=== PATIENT | female | born 1990 | race Caucasian/White ===

== ENCOUNTER 2016-05-13 09:58 | Emergency (ER) | payer BC ==
[2016-05-13 10:19] VITALS: BP 142/90; PULSE 78; RESP 18; TEMP 98.1; O2SAT 99
--- NOTE | 2016-05-13 10:44 | UCPHY ---
H & P Patient Type: New Chief Complaint Nursing Narrative: while skiing on sat. hit back of head. was wearing helmet. +loc,n/visual changes,brown,troble concentrating Time Seen by Provider: 05/13/16 10:23 HPI/ROS: CHIEF COMPLAINT: Headache HISTORY OF PRESENT ILLNESS: 25 year old otherwise healthy woman presents complaining of headache, neck pain and nausea and not feeling herself with difficulty concentrating since she sustained a head injury while skiing 4 days ago. Patient states she was skiing on Thursday when she is not sure what happened but she awoke on the ground. She thinks she hit a chunck of ice and went down. She was wearing a helmet. She thinks she was out for just a few seconds, but she could not remember what happened to her. She had a headache in her occiput where her helmet was against her head and felt nauseated. She was able to ski down but was feeling poorly and did not ski for the rest of the day. Since that time she has been having persistent headaches that she describes as occipital, radiating to the front associated with some mild photophobia and phonophobia, as well as difficulty concentrating and nausea. She has had no actual vomiting. She states that she does not feel as sharp as she usually does. For the 1st 2 days she has some vertigo but this is improved. She also has been getting intermittent tunnel vision. She denies any double vision, loss of vision, focal numbness or weakness. She does complain of pain in her neck and shoulders radiating to her arms. She has not taken anything for the headache. She does not smoke. 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 REVIEW OF SYSTEMS: As in HPI, all other systems are reviewed and are negative. - Personal History LMP (Females 10-55): 22-28 Days Ago Current Tetanus Diphtheria and Acellular Pertussis (TDAP): Yes - Medical/Surgical History Hx Asthma: No Hx Chronic Respiratory Disease: No Hx Diabetes: No Hx Cardiac Disease: No Hx Renal Disease: No Hx Cirrhosis: No Hx Alcoholism: No Hx HIV/AIDS: No Hx Splenectomy or Spleen Trauma: No Other PMH: ortho surgery - Family History Significant Family History: No pertinent family hx - Social History Smoking Status: Never smoked - Physical Exam Exam: General Appearance: Alert and no distress. Head: Normocephalic, atraumatic, no palpable hematomas Eyes: Pupils equal and round no injection. Extraocular movements intact bilaterally Neck: No bony tenderness, full range of motion, mild trapezius tenderness Respiratory: Chest is nontender, lungs are clear to auscultation. Cardiac: regular rate and rhythm. Gastrointestinal: Abdomen is soft and nontender, no masses, bowel sounds normal. Musculoskeletal: Neck is supple and nontender. Extremities have full range of motion and are nontender. Skin: No rashes or lesions. Neuro: Awake alert and oriented x3, speech fluent, cranial nerves 2-12 intact, no pronator drift, normal gait, DTRs 2+ equal bilaterally upper and lower extremities, [id number] intact Constitutional: Initial Vital Signs Temperature (C) 36.7 C 05/13/16 10:16 Heart Rate 78 05/13/16 10:16 Respiratory Rate 18 05/13/16 10:16 Blood Pressure 142/90 H 05/13/16 10:16 O2 Sat (%) 99 05/13/16 10:16 O2 Delivery Mode Room Air Allergies/Adverse Reactions: Penicillins Allergy (Verified 05/13/16 10:16) Home Medications: Medication Instructions Recorded NK [No Known Home Meds] 05/13/16 Medical Decision Making ED Course/Re-evaluation: Patient presents with headache, nausea and difficulty concentrating after head injury with loss of consciousness 4 days ago. Patient has a normal neurologic exam. Her presentation is consistent with ongoing concussive symptoms or postconcussive syndrome. There is no evidence of significant neurological impairment. We discussed home care with rest and progressive return to activities including work and exercise. Patient has been referred for primary care as well as neurologic follow-up. Departure - Departure Clinical Impression: Post concussion syndrome Condition: Fair Instructions: Post Concussion Syndrome (ED) Additional Instructions: You were seen by Dr. Li Britton today. It is okay to take Tylenol or ibuprofen for headache. It is OK to nap to rest your brain. Please return for any worsening or new concerns. Referrals: NONE *PRIMARY CARE P,. [Primary Care Provider] - As per Instructions - PQRS PQRS Measurement: NA
== END 2016-05-13 10:45 | disposition home or self-care (01) ==
LOC: CED 09:58
DX: F07.81 Postconcussional syndrome (principal); S06.9X1A Unspecified intracranial injury with loss of consciousness of 30 minutes or less, initial encounter; M54.2 Cervicalgia; V00.321A Fall from snow-skis, initial encounter; Y93.23 Activity, snow (alpine) (downhill) skiing, snowboarding, sledding, tobogganing and snow tubing
CPT/HCPCS: 99203-PO; G0463-PO

== ENCOUNTER 2017-04-11 10:06 | Inpatient (IN) | payer BC ==
--- NOTE | 2017-04-11 10:30 | CPEKG ---
Heart Rate: 69 RR Interval: 870 P-R Interval: 144 QRSD Interval: 88 QT Interval: 396 QTC Interval: 425 P [place]: 47 QRS [place]: 49 T Wave [place]: 7 EKG Severity - NORMAL ECG - EKG Impression: SINUS RHYTHM Electronically Signed By: Jaskaran Longo 11-Apr-2017 10:39:51
[2017-04-11 10:59] LABS: PLATELET COUNT 262 10^3/uL (150-400)
--- NOTE | 2017-04-11 11:01 | EDPHY ---
H & P Stated Complaint: CP - Personal History LMP (Females 10-55): IUD In Place Current Tetanus/Diphtheria Vaccine: Yes Current Tetanus Diphtheria and Acellular Pertussis (TDAP): Yes - Medical/Surgical History Hx Asthma: No Hx Chronic Respiratory Disease: No Hx Diabetes: No Hx Cardiac Disease: No Hx Renal Disease: No Hx Cirrhosis: No Hx Alcoholism: No Hx HIV/AIDS: No Hx Splenectomy or Spleen Trauma: No Other PMH: ortho surgery - Social History Smoking Status: Never smoked Time Seen by Provider: 04/11/17 10:38 HPI/ROS: CHIEF COMPLAINT: Chest pain HISTORY OF PRESENT ILLNESS: 26-year-old female generally healthy return from a trip to landing yesterday, landed at 2:30 p.m. Yesterday. 6 hr into the flight she developed midsternal chest pain with associated dyspnea. She was evaluated by paramedics at [facility], went home, notes that the midsternal chest pain continues. No nausea or vomiting. No radiation pain. No dyspnea currently. Chest pain is not reproducible with inspiration or movement. Not reproducible with palpation to the chest. While in [place] she developed an episode of gastroenteritis which subsided 3 days ago . She was symptomatic with vomiting and diarrhea when this episode occurred however she has now been asymptomatic for 3 days. REVIEW OF SYSTEMS: A ten point review of systems was performed and is negative with the exception of the items mentioned in the HPI PAST MEDICAL & SURGICAL HISTORY: No exogenous estrogen use. SOCIAL HISTORY:No cocaine use no cigarette use. No illicit drug use. FAMILY HISTORY: No coagulopathic disorder, no family history of premature coronary artery disease or sudden unexpected PHYSICAL EXAM (Prior to examination, patient consented to physical exam, hands were washed and my usual and customary physical exam procedures followed) 1) GENERAL: Well-developed, well-nourished, alert and oriented. Appears to be in no acute distress. 2) HEAD: Normocephalic, atraumatic 3) HEENT: Pupils equal, round, reactive to light bilaterally. Sclera anicteric. 4) NECK: Full range of motion, no meningeal signs. No bruit 5) LUNGS: Clear auscultation bilaterally, no wheezes, no rhonchi, no retractions. Chest wall nontender. 6) HEART: Regular rate and rhythm, no murmur, no heave, no gallop. 7) ABDOMEN: No guarding, no rebound, no focal tenderness, negative McBurney's, negative Rodriguez's, negative Rovsing's, negative peritoneal sign, 8) MUSCULOSKELETAL: Moving all extremities, no focal areas of tenderness, no obvious trauma. No peripheral edema or discoloration. Negative Homans no palpable cord 9) BACK: No CVA tenderness, no midline vertebral tenderness, no fluctuance, no step-off, no obvious trauma, no visual or palpable abnormality. 10) SKIN: No rash, no petechiae. 11) Psychiatric: Patient is oriented X 3, there is no agitation. DIFFERENTIAL DIAGNOSIS: In no particular order, including but not limited to myocardial ischemia, pulmonary embolus, chest wall pain, pleural inflammation and pulmonary infectious causes. (Jonah Guzman) Constitutional: Initial Vital Signs Temperature (C) 37.2 C 04/11/17 10:14 Heart Rate 74 04/11/17 10:14 Respiratory Rate 16 04/11/17 10:14 Blood Pressure 125/83 H 04/11/17 10:14 O2 Sat (%) 97 04/11/17 10:14 O2 Delivery Mode Room Air Allergies/Adverse Reactions: Penicillins Allergy (Verified 04/11/17 10:14) Home Medications: Medication Instructions Recorded Ibuprofen [Motrin (*)] 200 mg PO QID PRN 04/11/17 Medical Decision Making ED Course/Re-evaluation: 11:30 a.m.: Patient has elevated troponin of 2.4, specific etiology of which is not completely clear yet. Patient's D-dimer still pending at this time. Will hold on chest x-ray until patient's D-dimer is returned to decrease radiation exposure 1138 am: Consultation with hospitalist Evelyn, admit to Dr. Layton, PCU 11:43 a.m.: Consultation with Dr. Cash Gardner cardiology who agrees to consult for Cardiology. 12:15 p.m.: Patient's D-dimer is normal. Will obtain chest x-ray. (Jonah Guzman) Other Provider: PHYSICIAN DOCUMENTATION: The patient was evaluated and managed by the Physician Gas Inspector and myself. I have reviewed the chart and agree with the findings and plan of care as documented. In addition, I examined the patient myself at 1230. History confirmed as chest pain, recent travel. Physical findings as follows: RRR no murmur. Low pretest probability for pulmonary embolism, negative D-dimer. 12-lead EKG interpreted by me; official reading is in trace master. My interpretation is sinus rhythm without acute ST changes, normal intervals. Admission for elevated troponin. Differential includes but not limited to NM, pericarditis, myocarditis. Cardiology consultation. I am the secondary supervising physician. (Jaskaran Longo) - Data Points Laboratory Results: Laboratory Results 04/11/17 10:35 04/11/17 10:35 04/11/17 04/11/17 04/11/17 10:50 10:35 10:35 WBC RBC Hgb Hct MCV MCH MCHC RDW Plt Count MPV Neut % (Auto) Lymph % (Auto) [place] % (Auto) Eos % (Auto) Baso % (Auto) Nucleat RBC Rel Count Absolute Neuts (auto) Absolute Lymphs (auto) Absolute Monos (auto) Absolute Eos (auto) Absolute Basos (auto) Absolute Nucleated RBC Immature Gran % Immature Gran # PT 13.2 SEC SEC (12.0-15.0) INR 0.98 (0.83-1.16) APTT 25.2 SEC SEC (23.0-38.0) D-Dimer 0.33 ug/mLFEU ug/mLFEU (0.00-0.50) Sodium Potassium Chloride Carbon Dioxide Anion Gap BUN Creatinine Estimated GFR Glucose Calcium Creatine Kinase Troponin I Beta HCG, Qual JIMMY Screen Pending HIV 1&2 Antibody Pending 04/11/17 04/11/17 04/11/17 10:35 10:35 10:35 WBC RBC Hgb Hct MCV MCH MCHC RDW Plt Count MPV Neut % (Auto) Lymph % (Auto) [place] % (Auto) Eos % (Auto) Baso % (Auto) Nucleat RBC Rel Count Absolute Neuts (auto) Absolute Lymphs (auto) Absolute Monos (auto) Absolute Eos (auto) Absolute Basos (auto) Absolute Nucleated RBC Immature Gran % Immature Gran # PT INR APTT D-Dimer Sodium 144 mEq/L mEq/L (135-145) Potassium 3.6 mEq/L mEq/L (3.5-5.2) Chloride 105 mEq/L mEq/L (97-110) Carbon Dioxide 28 mEq/l mEq/l (22-31) Anion Gap 11 mEq/L mEq/L (8-16) BUN 10 mg/dL mg/dL (7-23) Creatinine 0.8 mg/dL mg/dL (0.6-1.0) Estimated GFR > 60 Glucose 64 mg/dL L mg/dL (70-100) Calcium 9.6 mg/dL mg/dL (8.5-10.4) Creatine Kinase 130 IU/L IU/L (0-156) Troponin I 2.400 ng/mL H ng/mL (0.000-0.034) Beta HCG, Qual NEGATIVE JIMMY Screen HIV 1&2 Antibody 04/11/17 10:35 WBC 5.13 10^3/uL 10^3/uL (3.80-9.50) RBC 4.54 10^6/uL 10^6/uL (4.18-5.33) Hgb 14.2 g/dL g/dL (12.6-16.3) Hct 38.9 % % (38.0-47.0) MCV 85.7 fL fL (81.5-99.8) MCH 31.3 pg pg (27.9-34.1) MCHC 36.5 g/dL g/dL (32.4-36.7) RDW 12.5 % % (11.5-15.2) Plt Count 262 10^3/uL 10^3/uL (150-400) MPV 10.2 fL fL (8.7-11.7) Neut % (Auto) 47.3 % % (39.3-74.2) Lymph % (Auto) 40.0 % % (15.0-45.0) [place] % (Auto) 9.4 % % (4.5-13.0) Eos % (Auto) 2.1 % % (0.6-7.6) Baso % (Auto) 0.8 % % (0.3-1.7) Nucleat RBC Rel Count 0.0 % % (0.0-0.2) Absolute Neuts (auto) 2.43 10^3/uL 10^3/uL (1.70-6.50) Absolute Lymphs (auto) 2.05 10^3/uL 10^3/uL (1.00-3.00) Absolute Monos (auto) 0.48 10^3/uL 10^3/uL (0.30-0.80) Absolute Eos (auto) 0.11 10^3/uL 10^3/uL (0.03-0.40) Absolute Basos (auto) 0.04 10^3/uL 10^3/uL (0.02-0.10) Absolute Nucleated RBC 0.00 10^3/uL 10^3/uL (0-0.01) Immature Gran % 0.4 % % (0.0-1.1) Immature Gran # 0.02 10^3/uL 10^3/uL (0.00-0.10) PT INR APTT D-Dimer Sodium Potassium Chloride Carbon Dioxide Anion Gap BUN Creatinine Estimated GFR Glucose Calcium Creatine Kinase Troponin I Beta HCG, Qual JIMMY Screen HIV 1&2 Antibody Medications Given: Colchicine (Colchicine) 0.6 mg PO DAILY JOSEFINA Stop: 10/08/17 14:59 Last Admin: 04/11/17 15:58 Dose: 0.6 mg Ibuprofen (Motrin) 600 mg PO TID JOSEFINA Stop: 10/08/17 15:59 Last Admin: 04/11/17 15:59 Dose: 600 mg Discontinued Medications Aspirin (Aspirin) 324 mg PO EDNOW ONE Stop: 04/11/17 11:40 Last Admin: 04/11/17 11:44 Dose: 324 mg Departure - Departure Disposition: [facility] Inpatient Acute Clinical Impression: Troponin level elevated Chest pain Qualifiers: Chest pain type: unspecified Qualified Code(s): R07.9 - Chest pain, unspecified Condition: Good
[2017-04-11] MEDS ORDERED: ASPIRIN 81 MG CHEWABLE TAB PO ONE (11:39)
--- NOTE | 2017-04-11 11:45 | ASMTLACE ---
CURTIS Acuity / Level of Answers: Yes Care: Did the patient have an inpatient admission? # of Emergency department Answers: 1-2 visits in the last 6 months Score: 4 Date Signed: 04/11/2017 11:44 AM Electronically Signed By:Sherri Rutledge RN
[2017-04-11 11:54] LABS: INR 0.98 (0.83-1.16); PROTIME(PATIENT) 13.2 SEC (12.0-15.0)
[2017-04-11] MEDS ORDERED: ONDANSETRON DISINTEGRATING 4 MG TAB PO PRN (13:13)
[2017-04-11] MEDS ORDERED: ONDANSETRON 4 MG/2 ML VIAL IVP PRN (13:13)
[2017-04-11] MEDS ORDERED: ACETAMINOPHEN 325 MG TAB PO PRN (13:13)
[2017-04-11] MEDS ORDERED: IBUPROFEN 200 MG TAB PO PRN (13:13)
[2017-04-11] MEDS ORDERED: oxyCODONE IR 5 MG TAB PO PRN (13:13)
[2017-04-11] MEDS ORDERED: IOPAMIDOL (ISOVUE 370) 100 ML BTL IV ONE (13:18)
--- NOTE | 2017-04-11 15:10 | CPEKG ---
Heart Rate: 64 RR Interval: 938 P-R Interval: 156 QRSD Interval: 84 QT Interval: 420 QTC Interval: 434 P [place]: 65 QRS [place]: 48 T Wave [place]: 18 EKG Severity - NORMAL ECG - EKG Impression: SINUS RHYTHM Electronically Signed By: Jaskaran Longo 11-Apr-2017 15:16:18
--- NOTE | 2017-04-11 15:28 | GHP ---
[f rep st] HISTORY AND PHYSICAL DATE OF ADMISSION: 04/11/2017 CHIEF COMPLAINT: Chest pain, shortness of breath. HISTORY OF PRESENT ILLNESS: The patient is a 26-year-old female with an unremarkable past medical hi story, who presents to the emergency department with chest pain and shortness of breath. The onset o f her symptoms occurred abruptly while traveling on an airplane from [place] to [place]. Six hours int o her flight, she developed relatively sudden onset substernal chest pain. This radiated to both alissa ulders and up into her neck. This was associated with shortness of breath and pleuritic symptoms. S he denied any nausea, vomiting, or diaphoresis. She has no cardiac risk factors and no family histor y of premature heart disease. She de-boarded the plane in [place] and was met by paramedics who found her to have normal oxygen saturations and no acute EKG changes. She was given the option to proceed to the emergency department or go home. She opted to go home, but she awoke early this morning with recurrent chest pain and shortness of breath, and presented to the emergency department for further evaluation. In the ED, her troponin was found to be 2.4. She was [facility]. Also of note, the patient reports a viral syndrome approximately 1 week ago, which mo stly caused a gastroenteritis-type picture. Her symptoms have resolved. PAST MEDICAL HISTORY: None. MEDICATIONS: None. ALLERGIES: Penicillin. SOCIAL HISTORY: The patient lives independently. She works for a [employer]. Her boyfriend is pr esent at the bedside. She denies tobacco and significant alcohol use. FAMILY HISTORY: Negative for clotting disorders and premature heart disease. REVIEW OF SYSTEMS: A 10-point review of systems was performed and negative except as per HPI. OBJECTIVE: VITAL SIGNS: Temperature is 36.7, blood pressure 121/75, heart rate 69, respiratory rate 14. She is 98% in room air. GENERAL: Patient is awake, alert, oriented, and in no acute distress. HEENT: Head is atraumatic, normocephalic. Pupils equal, round, and react to light. Extraocular m otion intact. Oropharynx is clear. Mucous membranes are moist. NECK: Supple. There is no JVD. H EART: Regular rate and rhythm without murmur or friction rub. LUNGS: Clear to auscultation bilater ally. ABDOMEN: Soft, nondistended, and nontender with normoactive bowel sounds. EXTREMITIES: With out cyanosis, clubbing, or edema. She has no calf tenderness. EXTREMITIES: Otherwise warm and well perfused. NEUROLOGIC: Grossly nonfocal. LABORATORY DATA: CBC is completely normal. INR 0.98. D-dimer 0.33. Basic metabolic panel shows no rmal electrolytes, normal creatinine of 0.8. Glucose is low at 64. Troponin is 2.4. CK 130. Beta hCG is negative. EKG shows normal sinus rhythm. I think there is some slight [place] depression in leads II and aVF and po ssibly in her lateral leads. There is no ST elevation. She does have a T-wave inversion in lead III . Chest x-ray is from the emergency department, personally reviewed and interpreted as negative for any acute cardiopulmonary process. CT pulmonary angiogram is negative for pulmonary embolism. ASSESSMENT AND PLAN: The patient is a 26-year-old female who presents to the emergency department wi th chest pain and shortness of breath, and found to have an elevated troponin, likely consistent with pericarditis. 1. Acute pericarditis: Her EKG is not classic for pericarditis as there is no diffuse ST elevation, but I do think she has some [place] depression with a troponin of 2.4, and a recent viral history, which makes a postviral pericarditis the most likely diagnosis. A CT pulmonary angiogram was negative for pulmonary embolism. Will repeat her EKG and trend her troponin. Cardiology is consulted. I will st art colchicine and ibuprofen. Will also send an JIMMY and HIV. Await her echocardiogram to ensure no pericardial effusion. She has no tamponade physiology evident. She is admitted to the PCU, will be, monitored on telemetry, and further recommendations per Cardiology. 2. Deep vein thrombosis prophylaxis: Patient is low risk. We will place sequential compression dev ices and plan for ambulation. CODE STATUS: Patient is full code. DISPOSITION: Patient is admitted to inpatient status as I anticipate greater than 48 hours' hospital ization for ongoing management of what appears to be an acute postviral pericarditis. /[id number]/MODL
[2017-04-11] MEDS: COLCHICINE 0.6 MG CAP/TAB PO SCH (15:58)
[2017-04-11] MEDS: IBUPROFEN 200 MG TAB PO SCH ×2 (15:59→22:36)
--- NOTE | 2017-04-11 16:14 | PDMN ---
Medical Necessity Medical necessity: C/M review: Patient meets JOSE villafana under MCG M-270 Pericarditis, A or 2 days LOS: Acute and persistent postviral pericarditis, chest pain, shortness of breath, elevated troponins - 2.400, 3.870, EKG- some slight [place] depression in leads II and AVF, and possibly in lateral leads, T wave inversion in lead III, requiring planned Cardiology consult, echocardiogram, ongoing cardiac monitoring, pulse oxiletry, oral colchicine daily, oral ibuprofen TID, trend troponin, comorbid chest pain, shortness of breath occurred abruptly traveling on an airplane from [place] to [place] 04/10/2017, deboarded plane, met by paramedics, patient opted to go home, 04/11/2017 recurrent chest pain, shortness of breath, history of viral syndrome approximately ago which caused gastroenteritis type symptoms. MD anticipates > 2 MN LOS for ongoing med nec for eval and TX of above.
--- NOTE | 2017-04-11 16:21 | ECHO ---
[email or web address] [address] Main: [phone] Fax: [email or web address] Echocardiogram Name: ALEA LEONARDO MR#: [id number] Study Date: 04/11/2017 Study Time: 02:16 PM Date of : 1990 Age: 26 year(s) Height: 172.7 cm (68 in.) Weight: 65.77 kg (145 lb.) BSA: 1.78 m2 Gender: Female Examination: Echo Indication: Chest pain/elevated troponin Image Quality: Contrast: Requested by: Hemalatha Layton BP: 121 mmHg/75 mmHg Heart Rate: Rhythm: Indication: Chest pain/elevated troponin Procedure Staff Knitter Hand: Ama Mackay RDCS Reading Physician: Cash Gardner MD Requesting Provider: Conclusions: Normal size left ventricle. Normal global systolic LV function. The ejection fraction is estimated to be 65-70 %. No regional wall motion abnormality. Normal size right ventricle. Mild mitral valve regurgitation is present. The aortic valve is normal in appearance and function. Trivial tricuspid valve regurgitation. No pericardial effusion. There is no previous echocardiogram for comparison. Measurements: Chambers Valvular Assessment AV/MV Valvular Assessment TV/PV Normal Normal Normal Name Value Range Name Value Range Name Value Range Ao [place] (MM): 3.0 cm (2.2 cm-3.7 AV meanP mmHg ( - ) cm) MV E Vmax: 1.00 m/s ( - ) IVSd (2D): 0.4 cm (0.6 cm-1.1 MV A Vmax: 0.38 m/s ( - ) cm) MV E/A: 2.63 ( - ) LVDd (2D): 4.7 cm (3.9 cm-5.3 cm) LVDs (2D): 2.9 cm (2.1 cm-4 cm) LVPWd (2D): 0.7 cm ( - ) LVEF (MOD4): 70 % (>=55 %) EF Range: 65-70 % Continued Measurements: Chambers Valvular Assessment AV/MV Patient: ALEA LEONARDO Study Date: 04/11/2017 Page 1 of 2 02:16 PM Name Value Name Value LADs: 3.3 cm MV E/E' Septal: 8.00 LADs Lon.6 cm MV E/E' Lateral: 6.70 LA Area: 14.2 cm2 Additional Vessels Name Value Ao Ascendin.9 cm Findings: Left Ventricle: Normal size left ventricle. No LV hypertrophy. Normal global systolic LV function. The ejection fraction is estimated to be 65-70 %. No regional wall motion abnormality. Right Ventricle: Normal size right ventricle. Left Atrium: The left atrium is normal in size. Right Atrium: The right atrium is normal in size. Mitral Valve: The mitral valve is normal in appearance and function. Mild mitral valve regurgitation is present. Aortic Valve: The aortic valve is normal in appearance and function. Tricuspid Valve: The tricuspid valve is normal in appearance and function. Trivial tricuspid valve regurgitation. Pulmonic Valve: The pulmonic valve is normal in appearance and function. Aorta: The aorta is normal. Pericardium: No pericardial effusion. (No Signature Object) Patient: ALEA LEONARDO Study Date: 04/11/2017 Page 2 of 2 02:16 PM [id number]
--- NOTE | 2017-04-11 17:43 | GCON ---
[f rep st] CONSULTATION DATE OF CONSULTATION: 04/11/2017 CHIEF COMPLAINT: Chest pain, abnormal troponin. HPI: This is a 26-year-old female who is an active, healthy woman, who has had no history of any chr onic illnesses, cardiac issues, or other problems. She recently was in [place] on a business trip. A pproximately 3 or 4 days ago she had flu-like symptoms with GI upset. Yesterday she flew home. While coming home she had some substernal chest pain that radiated across her chest and somewhat into her back. She was seen apparently at [facility], sent home this morning. She continued to have chest pain. Angelo zendejas reports to the emergency room at [facility] where her EKG showed no acute changes. Her troponin was eleva kang at 2.3. Her CK was normal at 180. She subsequently had a normal D-dimer. Had a CTA showing no pulmonary emboli or no other pulmonary pathology. An echocardiogram was done that showed normal ejec tion fraction without ischemic wall motion abnormality or pericardial effusion. Her pain has been im proved with Motrin at this time. She has no pericardial effusions. She is feeling well. In speakin g to her, she has been fully active without any issues. She is a nonsmoker. She has never had any gr owth and development issues. PAST MEDICAL HISTORY: Noncontributory. MEDICATIONS: She is on no medicine. ALLERGIES: To penicillin. SOCIAL HISTORY: She is a nonsmoker. Does not have alcohol abuse issues. FAMILY HISTORY: Negative. REVIEW OF SYSTEMS: Negative except for her viral illness. Under HPI otherwise, and her GI issues. EXAM: VITAL SIGNS: Blood pressure is 125/70, heart rate in the 70s. GENERAL: No acute distress. MOUTH: Oropharynx is moist. BACK/ /CHEST: Without palpable tenderness. I could not see a ny skin lesions. LUNGS: Clear to auscultation. CARDIOVASCULAR: Regular rate and rhythm without mu rmur, gallops, or rub. No JVP. No . ABDOMEN: Soft, nontender. MUSCULOSKELETAL: Strong pulses throughout without edema or cyanosis. ASSESSMENT: Abnormal troponin. I suspect this may be a postinfectious myocarditis situation. Her t roponins are elevated with the CKs being normal. Potentially, this would be consistent with an acute event 3 or 4 days ago. Her echocardiogram did not show a wall motion abnormality. Her CTA did not show pulmonary emboli. She has no pleural effusion. Her pain has improved with Motrin. A long disc ussion with her at this time. I suspect this is not ischemic, especially given her nonischemic elect rocardiograms and lack of history of any premature cardiovascular disease, and no prodromal acute cor onary syndrome symptomatology. I discussed the case with Dr. Layton as well. For now: 1. Continue current medical plan. 2. Repeat the troponins and CK-MBs tomorrow. 3. If no changes, patient most likely can be discharged home on nonsteroidal therapy. 4. If any other further problems or concerns, we could consider a CT coronary angiogram. However ac [place] coronary syndrome at this point seems to be unlikely cause. Many questions are answered, and she is comfortable and stable. /[id number]/MODL
[2017-04-12 05:13] VITALS: TEMP 98.3
[2017-04-12 07:48] VITALS: BP 114/72; PULSE 64; RESP 18; O2SAT 98
[2017-04-12] MEDS: IBUPROFEN 200 MG TAB PO SCH (07:56)
[2017-04-12] MEDS: COLCHICINE 0.6 MG CAP/TAB PO SCH (08:22)
--- NOTE | 2017-04-12 10:28 | SOAPPROG ---
SOAP Progress Note Assessment/Plan: Assessment:1. probable viral myocarditis..resovlving..normal echo ...ok to d/c on nsaids ..f/u with me prn..activity restrictions discussed Plan:1. ok to d/c from my standpoint..d/w dr salgado 04/12/17 10:27 Subjective: no cv c/o Objective: Vital Signs Temp Pulse Resp BP Pulse Ox 36.8 C 64 18 114/72 98 04/12/17 07:42 04/12/17 07:42 04/12/17 07:42 04/12/17 07:42 04/12/17 07:42 04/11/17 04/12/17 04/13/17 05:59 05:59 05:59 Intake Total 1800 Balance 1800 PT 13.2 SEC (12.0-15.0) 04/11/17 10:35 INR 0.98 (0.83-1.16) 04/11/17 10:35 ICD10 Worksheet Patient Problems: Problems Problem Status Onset Chest pain Acute Troponin level elevated Acute
--- NOTE | 2017-04-12 22:02 | GDS ---
[f rep st] DISCHARGE SUMMARY DISCHARGE DIAGNOSES: 1. Viral myocarditis. 2. Elevated troponin secondary to above, down trending. IMAGING STUDIES/PROCEDURES: 1. CT pulmonary angiogram, April 11, 2017 was negative for pulmonary emboli, aortic aneurysm, or diss ection. No pericardial effusion was seen. 2. Echocardiogram, April 11, 2017, was again negative for pericardial effusion, and ejection fraction was 65% to 70% with no wall motion abnormalities. [employer]: Dr. Cash Gardner, Cardiology. HISTORY: For details, please see the history and physical dated April 11, 2017. In brief, the ronda buck is a 26-year-old female with no significant past medical history who presented to the emergency dep artment with chest pain and shortness of breath. The onset of this occurred 6 hours into a flight fr [facility]. She was admitted hospital for further management. HOSPITAL COURSE: Patient was admitted to the progressive care unit. Her initial troponin was elevat ed at 2.4. Her EKG showed some mild MT depression with T wave inversion in lead III but no ST elevat ion. Her troponin susie to a peak of 3.8 and then trended down to 1.3 on the day of discharge. CT pu lmonary angiogram was negative for pulmonary embolism. She did give a history of a recent viral synd ghada making this presentation most consistent with a viral myocarditis. Fortunately, she has no nicko cardial effusion. She was started on colchicine and ibuprofen and will be discharged on ibuprofen al one. Cardiology consult was obtained and agreed with the above management plan. DISPOSITION: Patient is discharged home in stable condition. FOLLOWUP: 1. Dr. Cash Gardner, [facility]. 2. Primary care provider or [facility]. MEDICATIONS: DISCHARGE MEDICATIONS: Please see [facility] for completed outpatient medication list. NEW MEDICATIONS ON DISCHARGE: Include 1. Ibuprofen 400 mg p.o. t.i.d., #90, no refills. 2. Ciprofloxacin 0.3% ophthalmic drops, drop q.4 hours for viral conjunctivitis. /[id number]/MODL
[2017-04-13 02:59] LABS: HIV TYPE 1 AND 2 NEGATIVE (NEGATIVE)
== END 2017-04-12 10:57 | disposition home or self-care (01) | DRG 316 ==
LOC: OBSVTOIN 12:02 → F2W 14:10
PROVIDERS: ADMIT Hospitalist; ATTEND Hospitalist
DX: I40.0 Infective myocarditis (principal)
CPT/HCPCS: Q9967